=== PATIENT | female | born 1965 | race Caucasian/White ===

== ENCOUNTER → 2017-01-23 | Outpatient (CLI) | payer BC, OTHER ==
--- NOTE | 2017-01-23 14:02 | MRI ---
EXAM DESCRIPTION: Brain w/oContrast CLINICAL HISTORY: R51, Z85.827 history of melanoma with headaches and suspected metastases COMPARISON: None available TECHNIQUE: Non contrast MRI of the brain is performed according to our usual protocol including multiplanar multi sequence technique. FINDINGS: Noncontrast imaging of the brain demonstrates small normal ventricular system with a few subcortical bilateral white matter areas of increased signal most consistent with microvascular disease or very early age-related changes. These findings are slightly more prominent than expected for the patient's age. Mass effect or vasogenic edema is not apparent. There is no evidence of restricted diffusion. The third and fourth ventricles are midline. Mass effect is not apparent. Gradient echo imaging demonstrates no evidence of susceptibility artifact to suggest prior hemorrhage. No extra-axial fluid collections are noted. The sellar and suprasellar regions are unremarkable. Particularly with the multiple smaller areas of white matter signal change a contrast enhanced examination for a more complete evaluation to exclude metastatic melanoma is recommended. A limited repeat examination with contrast only to correlate with this examination can be requested. IMPRESSION: 1. Bilateral white matter areas of increased signal intensity in each subcortical region of both cerebral hemispheres consistent with microvascular disease or early age-related changes or less likely the possibility of a demyelinating process. The appearance does not strongly suggest vasogenic edema or demonstrate mass effect. 2. However, with the history of melanoma, complementary contrast enhanced examination with multiplane imaging to be certain there are no enhancing nodules within the brain is recommended. This can be performed as a limited repeat examination to correlate with this noncontrast study. 3. No evidence of restricted diffusion or abnormality on gradient echo imaging to suggest prior hemorrhage or acute ischemia. Electronically signed by: Juarez Wright MD 01/23/2017 2:01 PM CDT
== END | disposition home or self-care (01) ==
LOC: MRI 08:11
PROVIDERS: ATTEND Surgery Plastic and Reconstructive Surgery
DX: R51 Headache (principal); Z85.820 Personal history of malignant melanoma of skin

== ENCOUNTER → 2017-02-06 | Outpatient (CLI) | payer BC ==
--- NOTE | 2017-02-09 08:58 | MRI ---
EXAM DESCRIPTION: Brain w/Contrast CLINICAL HISTORY: 51 years Female, HX OF MELANOMA WITH HEADACHES AND SUSPECTED METASTASES COMPARISON: Prior noncontrast imaging January 23, 2017 TECHNIQUE: MRI of the brain is performed including multiplanar multi sequence technique. Post gadolinium imaging is performed following IV administration of gadolinium contrast agent FINDINGS: Repeat MRI of the brain imaging to include multiplanar postcontrast images was performed in this patient with recent diagnosis of malignant melanoma. Limited repeat noncontrast imaging with the three plane postcontrast enhanced imaging was obtained. There is no evidence of restricted diffusion. Mass effect or midline shift or hydrocephalus is not apparent. Line sagittal imaging shows an intact corpus callosum and normal-appearing brainstem. Routine axial postcontrast imaging as well as a 3-D multiplanar acquisition was obtained. The normal meningeal and vascular structures enhance. Focal enhancing nodules to suggest metastatic disease is not apparent. Mild white matter signal changes typical of age-related changes or microvascular disease are noted in each cerebral hemisphere white matter without evidence of tumor enhancement or other changes to suggest metastatic disease. As noted on the initial noncontrast imaging the possibility of a primary demyelinating process cannot be entirely excluded. IMPRESSION: 1. Negative examination for focal enhancement to suggest cerebral metastatic disease in this patient with known melanoma. 2. Subtle bilateral subcortical areas of abnormal signal consistent with previously noted white matter disease. Age-related changes or microvascular disease or the possibility of a demyelinating process should be considered. 3. Focal gliosis or mass effect or vasogenic edema or focal atrophy is not apparent. Electronically signed by: Juarez Wright MD 02/09/2017 8:57 AM CDT
== END | disposition home or self-care (01) ==
LOC: MRI 10:24
PROVIDERS: ATTEND Surgery Plastic and Reconstructive Surgery
DX: R51 Headache (principal); Z85.820 Personal history of malignant melanoma of skin

== ENCOUNTER → 2017-03-13 | Outpatient (CLI) | payer BC | END | disposition home or self-care (01) | LOC: GMAH 12:40 | PROVIDERS: ATTEND Family Medicine | DX: E89.40 Asymptomatic postprocedural ovarian failure (principal); E03.8 Other specified hypothyroidism; F33.42 Major depressive disorder, recurrent, in full remission ==

== ENCOUNTER 2017-06-08 04:06 | Emergency (ER) | payer BC ==
--- NOTE | 2017-06-08 04:38 | ED.PDOC ---
History of Present Illness - General Chief Complaint: Respiratory Problem Stated Complaint: feeling SOB x's 4 days Time Seen by Provider: 06/08/17 04:35 Source: patient - History of Present Illness Timing/Duration: 1 week Severity: moderate Improving Factors: nothing Worsening Factors: nothing Associated Symptoms: cough, malaise, nausea/vomiting Allergies/Adverse Reactions: Allergies Penicillins Allergy (Verified 06/08/17 04:26) Home Medications: Ambulatory Orders Cephalexin [Keflex] 500 mg PO TID 06/30/14 Fluoxetine HCl [Prozac] 40 mg PO DAILY 06/30/14 Fluticasone/Salmeterol 250/50 [Advair 250/50 Diskus] 1 puff INH BID 06/30/14 [place] Carbonate 300 mg PO BID 06/30/14 Non-Formulary Medication 1 each PO DAILY 06/30/14 Thyroid [Nature-Throid] 65 mg PO BID 06/30/14 predniSONE 10 mg PO TID 06/30/14 Montelukast [Singulair] 10 mg PO DAILY #30 tab 07/03/14 Tiotropium [place] Monohydrate [Spiriva Handihaler] 18 mcg IN DAILY #1 cap 07/03 predniSONE 20 mg PO DAILY #21 tab 07/03/14 Azithromycin Tab [Zithromax Tab] 250 mg PO QD #6 tab 06/08/17 Methylprednisolone [Medrol Dose Jareth] 4 mg PO Q24HR #24 tab 06/08/17 Review of Systems - Review of Systems Constitutional: States: chills, fever EENTM: States: nose congestion Respiratory: States: cough, wheezing Cardiology: States: chest pain Gastrointestinal/Abdominal: States: nausea, vomiting Genitourinary: States: no symptoms reported Musculoskeletal: States: no symptoms reported Skin: States: no symptoms reported Neurological: States: no symptoms reported Endocrine: States: no symptoms reported Hematologic/Lymphatic: States: no symptoms reported Past Medical History (General) - Patient Medical History Hx Seizures: No Hx Stroke: No Hx Dementia: No Hx Asthma: Yes Hx of COPD: No Hx Cardiac Disorders: No Hx Congestive Heart Failure: No Hx Pacemaker: No Hx Hypertension: No Hx Thyroid Disease: Yes Hx Diabetes: No Hx Gastroesophageal Reflux: No Hx Renal Disease: No Hx Cancer: Yes Hx of HIV: No Hx Hepatitis C: No Hx MRSA: No Surgical History: cancer surgery - Vaccination History Hx Tetanus, Diphtheria Vaccination: Yes Hx Influenza Vaccination: No Hx Pneumococcal Vaccination: Yes - Social History Hx Alcohol Use: Yes - occasional Hx Depression: Yes Family Medical History - Family History Mother Living Status: Still Living Physical Exam - Physical Exam General Appearance: Alert, Anxious Eye Exam: bilateral normal Ears, Nose, Throat: hearing grossly normal, normal ENT inspection, normal pharynx Neck: non-tender, full range of motion, supple Respiratory: no accessory muscle use, rales, rhonchi Cardiovascular/Chest: normal peripheral pulses, regular rate, rhythm, no edema Peripheral Pulses: radial,right: 2+, radial,left: 2+, femoral,right: 2+, femoral ,left: 2+, popliteal,right: 2+, popliteal,left: 2+, dorsalis pedis,right: 2+, dorsalis pedis,left: 2+ Gastrointestinal/Abdominal: normal bowel sounds, non tender, soft, no organomegaly, no pulsatile mass 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 Copy, Patient Portal Self Enrollment Activity: increase activity as tolerated Referrals: Bereket Lozada MD [Primary Care Provider] - 1-2 Weeks Prescriptions: Methylprednisolone [Medrol Dose Jareth] 4 mg PO Q24HR #24 tab Azithromycin Tab [Zithromax Tab] 250 mg PO QD #6 tab Home Medications: Ambulatory Orders Cephalexin [Keflex] 500 mg PO TID 06/30/14 Fluoxetine HCl [Prozac] 40 mg PO DAILY 06/30/14 Fluticasone/Salmeterol 250/50 [Advair 250/50 Diskus] 1 puff INH BID 06/30/14 [place] Carbonate 300 mg PO BID 06/30/14 Non-Formulary Medication 1 each PO DAILY 06/30/14 Thyroid [Nature-Throid] 65 mg PO BID 06/30/14 predniSONE 10 mg PO TID 06/30/14 Montelukast [Singulair] 10 mg PO DAILY #30 tab 07/03/14 Tiotropium [place] Monohydrate [Spiriva Handihaler] 18 mcg IN DAILY #1 cap 07/03 predniSONE 20 mg PO DAILY #21 tab 07/03/14 Azithromycin Tab [Zithromax Tab] 250 mg PO QD #6 tab 06/08/17 Methylprednisolone [Medrol Dose Jareth] 4 mg PO Q24HR #24 tab 06/08/17
[2017-06-08] MEDS ORDERED: IPRATROPIUM/ALBUTEROL 3 ML VIAL NEB ONE (04:39)
[2017-06-08] MEDS ORDERED: PROMETHAZINE HCL INJ 12.5 MG in SODIUM CHLORIDE 0.9% 50ML 50 ML IVPB ONE (04:39)
[2017-06-08] MEDS ORDERED: methylPREDNISolone SODIUM SUC 125 MG/2 ML VIAL IV ONE (04:39)
[2017-06-08] MEDS ORDERED: SODIUM CHLORIDE 0.9% 1000ML 1,000 ML IVS ONE (04:40)
[2017-06-08] MEDS ORDERED: PROMETHAZINE HCL INJ 25 MG/ML VIAL ONE (04:51)
[2017-06-08] MEDS ORDERED: SODIUM CHLORIDE 0.9% 50ML 50 ML ONE (04:51)
[2017-06-08 04:56] VITALS: O2SAT 96
--- NOTE | 2017-06-08 05:07 | RAD ---
EXAM: Single view chest. INDICATION: Pneumonia. COMPARISON: Chest x-ray: 07/02/2014. FINDINGS: Cardiac silhouette: Unremarkable. [place]: Unremarkable. Lobar consolidation: None. Pleural effusion: None. Pneumothorax: None. Other: None. Bones: Unremarkable. Other: None. IMPRESSION: 1. No acute cardiopulmonary process. Electronically signed by: Fco Lion MD 06/08/2017 5:06 AM [facility] Workstation: [id number]
[2017-06-08 06:52] VITALS: BP 126/82; TEMP 101
== END 2017-06-08 06:53 | disposition home or self-care (01) ==
LOC: ER 04:06
DX: J98.01 Acute bronchospasm (principal); J40 Bronchitis, not specified as acute or chronic
CPT/HCPCS: 36415; 71045; 80048; 85025; 87804; 94640; A4216; J2550; J2930; J7030; J7620